=== PATIENT | male | born 1995 | race Caucasian/White ===

== ENCOUNTER 2021-02-27 22:05 | Inpatient (IN) | payer MEDICAID ==
[~2021-02-27] VITALS: Ht 175.3 cm; Wt 89.8 kg
[2021-02-27 22:19] VITALS: BP 137/77
--- NOTE | 2021-02-27 22:57 | NUR ---
PT AMBULATED TO BED 09
--- NOTE | 2021-02-27 23:03 | NUR ---
PT BIB SELF FOR C/O RLQ PAIN THAT RADIATES TO RIGHT TESTICLE WITH BURNING/PAINFUL URINATION SINCE 1600 TODAY. PT DENIES INJURY. DENIES FEVER/CHILLS, SOB, CP. PT REPORTS N/V X 5 EPISODES. REPORTS TAKING TYLENOL AT HOME WITH NO RELIEF. ABDOMEN IS SOFT, FLAT AND TENDER TO TOUCH. MED HX: DENIES ALLERGIES: NKA
--- NOTE | 2021-02-27 23:05 | NUR ---
ERMD AT BEDSIDE.
[2021-02-27] MEDS ORDERED: ONDANSETRON 4 MG ODT PO ONE (23:10)
[2021-02-27] MEDS ORDERED: FAMOTIDINE 20 MG TAB PO ONE (23:10)
[2021-02-27] MEDS ORDERED: ALUMINUM HYD/MAG/SIMETHICONE 30 ML UDC PO ONE (23:10)
[2021-02-28] MEDS ORDERED: MORPHINE SULFATE 4 MG/ML SYR IVP ONE (00:05)
[2021-02-28] MEDS ORDERED: NACL 0.9% 1,000 ML IV SCH (00:05)
--- NOTE | 2021-02-28 00:15 | NUR ---
IV 20G TO LAC EST. LABS DRAWN AND HAND GIVEN TO KARENA INVENTORY ASSISTANT AT BEDSIDE.
[2021-02-28 00:26] LABS: APPEARANCE,URINE CLEAR (CLEAR); BILIRUBIN,URINE NEGATIVE (NEGATIVE); BLOOD, URINE NEGATIVE (NEGATIVE); COLOR,URINE YELLOW (YELLOW); LEUKOCYTE ESTERASE ,URINE NEGATIVE (NEGATIVE); NITRITE, URINE NEGATIVE (NEGATIVE); UGLUCOSE NEGATIVE (NEGATIVE)
[2021-02-28 00:28] LABS: BASOPHILS % (AUTO) 0.3 % (0.0-2.0); EOSINOPHILS # (AUTO) 0.1 K/uL (0-0.4); EOSINOPHILS % (AUTO) 0.3 % (0.0-4.0); HEMATOCRIT 45.8 % (36-52); HEMOGLOBIN 15.5 g/dL (12.0-18.0); LYMPHOCYTES # (AUTO) 0.6 K/uL (2.0-11.5); LYMPHOCYTES % (AUTO) 3.7 % (20.5-51.1); MEAN CORPUSCULAR HEMOGLOBIN 33 pg (27-31); MEAN CORPUSCULAR HGB CONC 34 g/dL (33-37); MEAN CORPUSCULAR VOLUME 98.4 fL (80-94); MONOCYTES # (AUTO) 1.4 K/uL (0.8-1.0); MONOCYTES % (AUTO) 8.9 % (1.7-9.3); NEUTROPHILS # (AUTO) 13.8 K/uL (1.8-7.7); NEUTROPHILS % (AUTO) 86.8 % (42.2-75.2); PLATELET COUNT (AUTO) 283 K/uL (140-450); RED BLOOD CELL COUNT(AUTO) 4.65 MIL/uL (4.20-6.10); RED CELL DISTRIBUTION WIDTH 12.8 % (11.6-13.7); WHITE BLOOD COUNT (AUTO) 15.9 K/uL (4.8-10.8)
--- NOTE | 2021-02-28 00:29 | NUR ---
ULTRASOUND AT BEDSIDE.
[2021-02-28] MEDS ORDERED: diphenhydrAMINE 50 MG/ML VIAL IVP ONE (00:30)
[2021-02-28 00:42] LABS: ANION GAP 17.1 (8-16); CARBON DIOXIDE 24.8 mmol/L (21-32); CREATININE 0.9 mg/dL (0.6-1.3); POTASSIUM 3.9 mmol/L (3.5-5.1)
[2021-02-28 00:47] LABS: TOTAL BILIRUBIN 1.5 mg/dL (0.0-1.0)
--- NOTE | 2021-02-28 01:17 | NUR ---
PT TAKEN TO CT VIA W.C.
--- NOTE | 2021-02-28 01:32 | NUR ---
PT RETURNED FROM CT. PT TOLERATED IV CONTRAST. DENIES ITCHINESS OR DIFFICULTY BREATHING, NO NOTED RASH OR REDNESS.
[2021-02-28] MEDS ORDERED: cefTRIAXone 1,000 MG VIAL ONE (03:22)
--- NOTE | 2021-02-28 03:30 | NUR ---
RECEIVED REPORT FROM ER NURSE OVER THE PHONE, CC ABDOMINAL PAIN AND NUEASEA/VOMITING. PT HAD US OF TESTICLES DONE, IT WAS NEGATIVE, CT OF ABDOMEN DONE REVEALS ACUTE APPENDICITIS, CONSULT WITH MD VARGAS ORDERED. PT RESTING IN STABLE CONDITION.
--- NOTE | 2021-02-28 03:39 | NUR ---
Patient will be admitted to care of MD ROGER. Admited to [facility]. Will go to room 119B. Belongings list completed. Report to VALE DENSON.
[2021-02-28] MEDS ORDERED: metroNIDAZOLE 500 MG/NS PREMIX 100 ML IV ONE ×2 (03:45→05:00)
--- NOTE | 2021-02-28 03:45 | NUR ---
PER DR. DELONG, FLAGYL IVPB TO BE GIVEN NOW INSTEAD OF AT 0500. ORDER CARRIED OUT.
--- NOTE | 2021-02-28 04:00 | NUR ---
PT BROUGHT UP BY WHEELCHAIR AND AMBULATED TO BED B V/S STABLE. NO C/O VOICED AT THIS TIME. MRSA SWAB DONE, ALL UNIVERSAL FALLS PRECAUTIONS IN PLACE.
[2021-02-28 04:30] VITALS: BP 114/56
[2021-02-28] MEDS: DEXT 5% /NACL 0.9% 1,000 ML IV SCH ×3 (04:51→20:31)
--- NOTE | 2021-02-28 05:00 | NUR ---
PT IN BED ASLEEP NO S/S OF PAIN OR DISTRESS NOTED. ALL UNIVERSAL PRECAUTIONS IN PLACE. FLAGYL FINNISHED, AND D5 RUNNING ORDERED. PT REMAINS NPO ALL UNIVERSAL FALLS PRECAUTIONS IN PLACE.
--- NOTE | 2021-02-28 06:00 | NUR ---
POINT OF CONTACT CALLED AND WAS UPDATED.
--- NOTE | 2021-02-28 07:30 | NUR ---
RECEIVED BEDSIDE REPORT FROM NIGHTSHIFT NURSE. PT RESTING IN BED. ABLE TO MAKE SOME NEEDS KNOWN. RESPIRATIONS EVEN AND UNLABORED WITH NO SOB OR RESPIRATORY DISTRESS. SKIN WARM AND DRY TO TOUCH. SAFETY MEASURES IN PLACE. WILL CONTINUE TO MONITOR
[2021-02-28] MEDS ORDERED: guaiFENesin DM 200/20 MG-10 ML 10 ML UDC PO PRN (07:45)
[2021-02-28] MEDS ORDERED: ONDANSETRON 4 MG/2 ML VIAL IM/IVP PRN (07:45)
[2021-02-28] MEDS ORDERED: ZOLPIDEM 5 MG TAB PO PRN (07:45)
[2021-02-28] MEDS ORDERED: DOCUSATE SODIUM 100 MG GELCAP PO PRN (07:45)
[2021-02-28] MEDS ORDERED: ACETAMINOPHEN 325 MG TAB PO PRN (07:45)
[2021-02-28] MEDS ORDERED: HYDROcodone/APAP 7.5/325 MG 1 TAB PO PRN (07:45)
[2021-02-28] MEDS ORDERED: POTASSIUM CHLORIDE 10 MEQ TABER PO PRN (07:45)
[2021-02-28 08:00] VITALS: BP 118/68
[2021-02-28] MEDS: PANTOPRAZOLE 40 MG TABEC PO SCH (09:00)
[2021-02-28 09:04] LABS: CHOL/HDL RATIO 3.5 (1-4.5); FREE T4 (FREE THYROXINE) 0.77 ng/dL (0.76-1.46); THYROID STIMULATING HORMONE 0.42 uIU/mL (0.34-3.74)
[2021-02-28] MEDS: MORPHINE SULFATE 2 MG/ML SYR IVP PRN ×2 (09:16→17:39)
--- NOTE | 2021-02-28 09:16 | NUR ---
PT COMPLAINED OF SEVERE 8/10 PAIN. PRN MORPHINE ADMINISTERED PRESCRIBED PER MD ORDER. PT TOLERATED WELL. MEDICATION EDUCATION PERFORMED. PT VERBALIZED UNDERSTANDING. SAFETY MEASURES IN PLACE. WILL CONTINUE TO MONITOR
--- NOTE | 2021-02-28 09:47 | NUR ---
PT AUNT AND GRANDMA VISITING PATIENT. NO SIGNS OF DISTRESS AT THIS TIME. SAFETY MEASURES IN PLACE. WILL CONTINUE TO MONITOR
--- NOTE | 2021-02-28 10:00 | NUR ---
DR. MORELOS AT BEDSIDE EXPLAINING PROCEDURE TO PATIENT. PATIENT IN AGREEMENT FOR LAP APPY TODAY. SAFETY MEASURES IN PLACE. WILL CONTINUE TO MONITOR
--- NOTE | 2021-02-28 11:45 | NUR ---
PT ASLEEP IN BED. RESPONSIVE TO VERBAL AND TACTILE STIMULI. SKIN WARM AND DRY TO TOUCH. RESPIRATIONS EVEN AND UNLABORED WITH NO SOB OR RESPIRATORY DISTRESS. SKIN WARM AND DRY TO TOUCH. SAFETY MEASURES IN PLACE. WILL CONTINUE TO MONITOR
[2021-02-28 12:26] LABS: MAGNESIUM 1.8 mg/dL (1.8-2.4)
--- NOTE | 2021-02-28 13:00 | NUR ---
PATIENT HAS BEEN SCREENED AND CATEGORIZED LOW NUTRITION RISK. PATIENT WILL BE SEEN WITHIN 7 DAYS OF ADMISSION. 03/06/[address]
--- NOTE | 2021-02-28 13:15 | NUR ---
PT RESTING IN BED WITH FAMILY AT BEDSIDE. NO SIGNS OF DISTRESS AT THIS TIME. SAFETY MEASURES IN PLACE. WILL CONTINUE TO MONITOR
--- NOTE | 2021-02-28 14:19 | NUR ---
REPORT GIVEN TO OR NURSE AT BEDSIDE. PT OFF TO SURGERY. SAFETY MEASURES IN PLACE. WILL CONTINUE TO MONITOR
[2021-02-28] MEDS ORDERED: ROCURONIUM 50 MG/5 ML VIAL IV ONE (14:37)
[2021-02-28] MEDS ORDERED: KETOROLAC 30 MG/ML VIAL ONE (14:37)
[2021-02-28] MEDS ORDERED: DEXAMETHASONE 4 MG/ML VIAL ONE (14:37)
[2021-02-28] MEDS ORDERED: fentaNYL citrate 0.05 MG/ML VIAL ONE (14:37)
[2021-02-28] MEDS ORDERED: NEOSTIGMINE 1:1000 10 MG/10 ML VIAL ONE (14:37)
[2021-02-28] MEDS ORDERED: GLYCOPYRROLATE 0.2 MG/ML VIAL ONE (14:37)
[2021-02-28] MEDS ORDERED: PROPOFOL 200 MG/20 ML VIAL IV ONE (14:37)
[2021-02-28] MEDS ORDERED: HYDROmorphone 1 MG/ML AMP IVP PRN (15:30)
[2021-02-28] MEDS ORDERED: HYDROcodone/APAP 5/325 MG 1 TAB TAB PO PRN (15:30)
[2021-02-28] MEDS ORDERED: HYDROmorphone PFS 2 MG/ML SYR ONE ×2 (15:48→15:55)
[2021-02-28 16:30] VITALS: BP 127/62
--- NOTE | 2021-02-28 16:30 | NUR ---
PT RETURNED BACK FROM OR. REPORT GIVEN AT BEDSIDE. PT TOLERATED WELL. NO SIGNS OF DISTRESS. SAFETY MEASURES IN PLACE. WILL CONTINUE TO MONITOR
--- NOTE | 2021-02-28 17:39 | NUR ---
PT COMPLAINED OF SEVERE PAIN. PRN MORPHINE ADMINISTERED PRESCRIBED PER MD ORDER. PT TOLERATED WELL. SAFETY MEASURES IN PLACE. WILL CONTINUE TO MONITOR
[2021-02-28 19:14] LABS: BARBITURATE, URINE NEGATIVE ng/ml (NEG <=200); BENZODIAZEPINE, URINE NEGATIVE ng/mL (NEG <=200); CANNABINOID, URINE NEGATIVE ng/mL (NEG <=50); COCAINE, URINE NEGATIVE ng/mL (NEG <=300); OPIATE, URINE NEGATIVE ng/mL (NEG <=2000); PHENCYCLIDINE SCREEN,URINE NEGATIVE ng/mL (NEG <=25)
--- NOTE | 2021-02-28 19:27 | NUR ---
ENDORSED TO NIGHTSHIFT FOR CONTINUITY OF CARE. PT IS STABLE
--- NOTE | 2021-02-28 19:28 | NUR ---
RECEIVED BEDSIDE REPORT FROM DAY RN. PT IS RESTING IN BED WITH GRANDMA AND UNCLE AT BEDSIDE. PT IS AAOX4. RESPIRATIONS ARE EQUAL AND UNLABORED ON ROOM AIR. LUNG SOUNDS ARE CLEAR. PT IS S/P LAP APPY TODAY WITH 3 SURGICAL INCISIONS CLOSED WITH DERMA ALY ANNOUNCER. CLEAN NO DRAINAGE NOTED. IV ON LAC 20G IVF D5NS INFUSING AT 120ML/H. PT IS AMBULATORY ABLE TO MAKE NEEDS KNOWN. SCD IN PLACE. POC DISCUSSED WITH PT AND FAMILY. CALL LIGHT IS WITHIN REACH. WILL CONTINUE TO MONITOR.
[2021-02-28 20:00] VITALS: BP 121/66
--- NOTE | 2021-02-28 20:15 | NUR ---
VITAL SIGNS ARE STABLE. PT AMBULATED TO BATHROOM RECONNECT TO IVF. ALL NEEDS MET. CALL LIGHT IS WITHIN REACH.
--- NOTE | 2021-02-28 22:54 | NUR ---
EDUCATED PATIENT ON USING IS 10X PER HR WHEN AWAKE. PT DEMONSTRATED PROPER USE OF IS AND VERBALIZED UNDERSTANDING. DONNA IV ABX NOW INFUSING PER ORDERS. ASSISTED PATIENT TO THE RESTROOM. CALL LIGHT IS WITHIN REACH. WILL CONTINUE TO MONITOR.
--- NOTE | 2021-03-01 00:06 | NUR ---
ROUNDS MADE. PT RESTING IN BED USING CELLPHONE. DENIES S/SX OF DISTRESS. CALL LIGHT IS WITHIN REACH. WILL CONTINUE TO MONITOR.
--- NOTE | 2021-03-01 02:05 | NUR ---
ROUNDS MADE. PATIENT IS RESTING COMFORTABLY IN BED USING PHONE. DENIES S/SX OF DISTRESS. WILL CONTINUE TO MONITOR.
[2021-03-01 04:00] VITALS: BP 115/55
[2021-03-01] MEDS: MORPHINE SULFATE 2 MG/ML SYR IVP PRN ×2 (04:33→12:28)
--- NOTE | 2021-03-01 04:33 | NUR ---
VITAL SIGNS ARE WITHIN NORMAL LIMITS. PT WITH C/C OF ABD PAIN. ADMIN PRN MORPHINE. ALL NEEDS MET. CALL LIGHT IS WITHIN REACH.
[2021-03-01 05:00] LABS: ANION GAP 15.4 (8-16); CARBON DIOXIDE 24.9 mmol/L (21-32); CREATININE 0.8 mg/dL (0.6-1.3); POTASSIUM 4.3 mmol/L (3.5-5.1)
[2021-03-01 05:07] LABS: BASOPHILS % (AUTO) 0.1 % (0.0-2.0); HEMATOCRIT 42.2 % (36-52); HEMOGLOBIN 14.5 g/dL (12.0-18.0); LYMPHOCYTES # (AUTO) 0.8 K/uL (2.0-11.5); LYMPHOCYTES % (AUTO) 8.2 % (20.5-51.1); MEAN CORPUSCULAR HEMOGLOBIN 34 pg (27-31); MEAN CORPUSCULAR HGB CONC 35 g/dL (33-37); MEAN CORPUSCULAR VOLUME 98.7 fL (80-94); MONOCYTES # (AUTO) 0.5 K/uL (0.8-1.0); MONOCYTES % (AUTO) 5.4 % (1.7-9.3); NEUTROPHILS # (AUTO) 8.6 K/uL (1.8-7.7); NEUTROPHILS % (AUTO) 86.3 % (42.2-75.2); PLATELET COUNT (AUTO) 278 K/uL (140-450); RED BLOOD CELL COUNT(AUTO) 4.27 MIL/uL (4.20-6.10); RED CELL DISTRIBUTION WIDTH 12.8 % (11.6-13.7); WHITE BLOOD COUNT (AUTO) 9.9 K/uL (4.8-10.8)
[2021-03-01] MEDS: DEXT 5% /NACL 0.9% 1,000 ML IV SCH ×2 (06:21→12:50)
--- NOTE | 2021-03-01 07:31 | NUR ---
GAVE BEDSIDE REPORT TO DAY RN. PT ENDORSED IN STABLE CONDITION.
--- NOTE | 2021-03-01 07:32 | NUR ---
RECEIVED BEDSIDE REPORT FROM PROPERTIES SUPERVISOR NURSE FOR CONTINUITY OF CARE. PT IS AAOX4, ABLE TO MAKE NEEDS KNOWN. RESPIRATIONS ARE EQUAL AND UNLABORED ON ROOM AIR. LUNG SOUNDS ARE CLEAR. NO DISTRESS NOTED. S/P LAP APPY 02/28 WITH 3 SURGICAL INCISIONS CLOSED WITH DERMA ALY CAVING GUIDE. CLEAN NO DRAINAGE NOTED. IV ON LAC 20G IVF FLUIDS WELL. PATIENT DENIES PAIN OR DISCOMFORT. POC DISCUSSED. SAFETY PRECAUTIONS IN PLACE. CALL LIGHT IS WITHIN REACH. WILL CONTINUE TO MONITOR.
[2021-03-01 08:00] VITALS: BP 130/79
[2021-03-01 08:08] LABS: T4 (THYROXINE) 5.5 ug/dL (4.5-12.0)
[2021-03-01] MEDS: PANTOPRAZOLE 40 MG TABEC PO SCH (09:04)
--- NOTE | 2021-03-01 09:15 | NUR ---
ALL SCHEDULED MEDS GIVEN. PT IS STABLE. NO DISTRESS NOTED. WILL CONTINUE TO MONITOR.
[2021-03-01] MEDS ORDERED: IBUP-2213 PO (10:50)
[2021-03-01] MEDS ORDERED: CEPH250C16 PO (10:50)
--- NOTE | 2021-03-01 10:51 | NUR ---
NEW DISCHARGE ORDER RECEIVED FROM MD. WILL INFORM PATIENT.
--- NOTE | 2021-03-01 12:00 | NUR ---
ENDORSED DISCHARGE INSTRUCTIONS TO PATIENT. PATIENT VERBALIZED UNDERSTANDING AND SIGNED THE FORMS. AWAITING FOR PICKUP.
--- NOTE | 2021-03-01 12:28 | NUR ---
PATIENT COMPLAINED OF 9/10 PAIN OF SURGICAL WOUNDS ON ABD. ADMINISTERED MORPHINE IVP PER MD ORDERED.
[2021-03-01 12:34] VITALS: BP 130/79
--- NOTE | 2021-03-01 13:00 | NUR ---
PT DISCHARGED OFF THE UNIT. PATIENT PICKED UP BY FAMILY AT THE FRONT LOBBY. PATIENT WAS STABLE PRIOR TO DISCHARGE.
== END 2021-03-01 13:00 | disposition home or self-care (01) | DRG 234 ==
LOC: MED 22:05 → MTU 02-28 03:35
PROVIDERS: ADMIT Family Medicine; ATTEND Family Medicine
PROC: 0DTJ4ZZ Resection of Appendix, Percutaneous Endoscopic Approach (ICD-10-PCS; principal; 2021-02-28 14:25)
DX: K35.80 Unspecified acute appendicitis (principal); E78.5 Hyperlipidemia, unspecified; E86.0 Dehydration; R74.01 Elevation of levels of liver transaminase levels; L72.0 Epidermal cyst; N50.89 Other specified disorders of the male genital organs
CPT/HCPCS: 36415; 71045; 76870; 80048; 80053; 80305; 81003; 82150; 83036; 83690; 83735; 83880; 84100; 84436; 84439; 84443; 84479; 84484; 85025; 85610; 85730; 87081; 88304; 93005; 96361; 96365; 96368; 96375; 99285; J0696; J1100; J1170; J1200; J1885; J2270; J2704; J2710; J3010; J3490; J7030; J7060; J7120; Q0162; Q9967